=== PATIENT | female | born 1990 | race Caucasian/White ===

== ENCOUNTER 2021-03-20 20:27 | Emergency (ER) | payer MEDICAID, SELFPAY ==
--- NOTE | 2021-03-20 20:34 | ED.PSYCH ---
HPI - Psych General Chief Complaint: ETOH/Substance Use Stated Complaint: SUBSTANCE ABUSE,COMBATIVE Time Seen by Provider: 03/20/21 20:33 Source: patient, EMS and police Mode of arrival: EMS Limitations: other (smoking crack) History of Present Illness HPI Narrative: admits to smoking crack cocaine for the last few days, there was an issue at a store ?shoplifting of water, she comes in agitated with police MD complaint: substance abuse Onset (ago): day(s) (3 ) Duration: constant History of same: Yes Relieving factors: none Exacerbating factors: drug use Context: recent drug abuse Associated psychiatric symptoms: none Associated symptoms: denies other symptoms Treatments prior to arrival: none Related Data Allergies Allergy/AdvReac Type Severity Reaction Status Date / Time No Known Allergies Allergy Unverified 07/16/20 19:14 [No Known Allergies*] Review of Systems Review of Systems: Constitutional : No Fever, No Chills ENT/Mouth : No Ear Pain, No Nasal Congestion, No sore throat Eyes: No Eye Pain, No Swelling, No Redness Cardiovascular : No Chest Pain, No SOB Respiratory : No Cough, No Sputum, No Dyspnea Gastrointestinal : No Nausea, No Vomiting, No Diarrhea, No Hematochezia, No Melena Genitourinary : No Dysuria, No Urinary Frequency, No Hematuria Musculoskeletal : No Myalgias Skin : No Skin Lesions, No rash Neuro : No Weakness, No Numbness, No Paresthesias, No Dizziness, No Headache Psych : positive Anxiety, no Depression, no SI/HI Heme/Lymph: No Lymphadenopathy Endocrine : No Polyuria, No Polydipsia All other systems reviewed and are negative [facility] Past Medical History Attestation statement: The following information was validated with the patient. Medical History Substance abuse Social History Social History (Updated 03/20/21 @ 20:48 by Sandra Tran DO) Smoking Status: Current every day smoker Substance Use Type: Crack/Cocaine Patient : No Physical Exam Vital Signs: Vital Signs: Last Vital Signs Temp 98.0 F 03/20/21 20:40 Pulse 101 H 03/20/21 20:40 Resp 24 H 03/20/21 20:40 BP 154/88 H 03/20/21 20:40 Pulse Ox 98 03/20/21 20:40 Body Mass Index 42.9 Appearance: Alert. Oriented X3. Very anxious, mild distress, agitated at times, tearful, crying this is embarrasing Eyes: Pupils equal, round and reactive to light. ENT: Pharynx normal. dark pozo around lips ?soot from crack pipe Neck: Normal inspection. Neck supple. CVS: Normal heart rate and rhythm. Pulses normal. Respiratory: No respiratory distress. Breath sounds normal. Abdomen: Soft and non-tender. Skin: Skin warm and dry. Normal skin color. Normal skin turgor. Extremities: No lower extremity edema. No calf ttp Neuro: Oriented X 3. No motor deficit. No sensory deficit. Psych: loud, yelling, crying, jerking movements Course Course Course Narrative: much more calm and sleeping, once awake will reassess but anticipate DC in AM MDM - Psych MDM Narrative Medical decision making narrative: 31 yo female smoking crack cocaine x 3 days - here upset and agitated, offered her IM ativan for anxiolytic given it would work faster than PO and she is requesting injection this is not a restraint it was done for her anxiety at her request. dispo per results and findings. Discharge Plan Discharge Clinical Impression: Crack cocaine use Instructions: Cocaine Abuse (ED) Additional Instructions: return to ED for any worsening symptoms or concerns
[2021-03-20 20:40] VITALS: BP 154/88; PULSE 101; RESP 24; TEMP 36.7; O2SAT 98; BMI 42.9
[2021-03-20] MEDS: LORazepam 2 MG/ML VIAL IM (20:40)
--- NOTE | 2021-03-20 21:26 | PC.NURSE ---
Pt shouting, wiggling body (all extremities), opening eyes to name, rubbing face and then laying down again. Skin PWD. NAD.
[2021-03-21 02:53] VITALS: RESP 18
== END 2021-03-21 08:15 | disposition home or self-care (01) ==
PROVIDERS: Emergency Provider Emergency Medicine
DX: F14.19 Cocaine abuse with unspecified cocaine-induced disorder (principal); R45.1 Restlessness and agitation; Z79.899 Other long term (current) drug therapy; Z71.51 Drug abuse counseling and surveillance of drug abuser
CPT/HCPCS: 96372; 99284; J2060